=== PATIENT | female | born 2000 | race Caucasian/White ===

== ENCOUNTER 2023-09-09 11:04 | Emergency (ER) | payer OTHER, SELFPAY ==
[2023-09-09 11:29] VITALS: BP 121/73; PULSE 94; RESP 15; TEMP 36.6; O2SAT 99; BMI 22.8
[2023-09-09] MEDS: ONDANSETRON 4 MG ODT SL (11:37)
[2023-09-09 15:05] VITALS: BP 112/68; PULSE 85; RESP 18; O2SAT 100
--- NOTE | 2023-09-09 15:36 | ED.NAVMDI ---
HPI - Nausea/Vomiting/Diarrhea <Sachin Howard PA-C - Last Filed: 09/09/23 16:00> General Chief complaint: Nausea/Vomiting/Diarrhea Stated complaint: Alcohol Poisoning Time Seen by Provider: 09/09/23 14:17 Source: patient Mode of arrival: Ambulatory History of Present Illness HPI Narrative: This is a 23-year-old female presents to department due to episodes of nausea and vomiting last night as well as this morning. States she was not in a couple of days prior to that and drank quite a bit of alcohol as well as used cocaine last night. She was concerned that she was not felt this nauseous or vomited this much after drinking and using cocaine in the past. Denies any fevers, chest pain, shortness of breath, or any other concerning signs or symptoms. Related Data Previous Rx's Medication Instructions Recorded ondansetron 4 mg disintegrating 4 mg PO Q8H PRN nausea and 09/09/23 tablet vomiting #30 tabs Allergies Allergy/AdvReac Type Severity Reaction Status Date / Time No Known Drug Allergies Allergy Verified 09/09/23 11:29 Review of Systems <Sachin Howard PA-C - Last Filed: 09/09/23 16:00> Review of Systems Narrative: GENERAL: Denies chills, fatigue, malaise, fever, sweats. HEENT: Denies sinus pain, ear pain, sore throat, difficulty swallowing, dizziness. RESPIRATORY: Denies dyspnea, cough, wheezing, hemoptysis, sputum. CARDIOVASCULAR: Denies chest pain, palpitations, orthopnea, edema, GASTROINTESTINAL: Reports nausea, vomiting, denies abdominal pain, diarrhea, constipation, melena. : Denies dysuria, frequency, incontinence, hematuria, urinary retention. MUSCULOSKELETAL: denies weakness, joint pain, or bony pain SKIN: Denies rash, skin lesions, or other NEUROLOGIC: Denies weakness, headache, numbness, change in speech, confusion, seizures, incoordination. PSYCHIATRIC: No concerning psychosocial issues. 12 point review of systems is negative except for those stated above Patient History <Sachin Howard PA-C - Last Filed: 09/09/23 16:00> Social History Smoking Status: Current every day smoker Smoking Status: Current every day smoker tobacco type: vaping alcohol intake frequency: 0-2 drinks per day Substance Use Type: crack/cocaine Exam <Sachin Howard PA-C - Last Filed: 09/09/23 16:00> Narrative Exam Narrative: GENERAL: Well-developed patient, in mild distress. HEAD: Atraumatic. Normocephalic. EYES: Pupils equal round and reactive. Extraocular motions intact. No scleral icterus. No injection or drainage. ENT: Nose without bleeding, purulent drainage. Throat without erythema, tonsillar hypertrophy or exudate. Airway patent. NECK: Trachea midline. Non tender EXTREMITIES: No edema or joint tenderness. NEURO: AOx3. SKIN: No rash or erythema of visible areas Abdomen: Generalized tenderness to palpation Initial Vital Signs Initial Vital Signs: Vital Signs Temperature 97.8 F 09/09/23 11:29 Pulse Rate 94 H 09/09/23 11:29 Respiratory Rate 15 09/09/23 11:29 Blood Pressure 121/73 09/09/23 11:29 Pulse Oximetry 99 09/09/23 11:29 Oxygen Delivery Method Room Air 09/09/23 11:29 <Denise Heredia DO - Last Filed: 09/09/23 18:59> Initial Vital Signs Initial Vital Signs: Vital Signs Temperature 97.8 F 09/09/23 11:29 Pulse Rate 94 H 09/09/23 11:29 Respiratory Rate 15 09/09/23 11:29 Blood Pressure 121/73 09/09/23 11:29 Pulse Oximetry 99 09/09/23 11:29 Oxygen Delivery Method Room Air 09/09/23 11:29 Course <Sachin Howard PA-C - Last Filed: 09/09/23 16:00> Orders Ordered: ED Orders 09/09/23 15:26 Urine Drug Screen, Rapid Stat Discontinued Medications Ondansetron HCl (Ondansetron 4 Mg/2 Ml Inj) 4 mg IV NOW PRN PRN Reason: Nausea And Vomiting Ondansetron HCl (Ondansetron 4 Mg Odt) 4 mg SL NOW PRN PRN Reason: Nausea And Vomiting Last Admin: 09/09/23 11:37 Dose: 4 mg Documented By: LOKI Vital Signs Vital signs: Vital Signs - 8 hr 09/09/23 11:29 09/09/23 15:05 09/09/23 16:13 Temperature 97.8 F 98.2 F Pulse Rate 94 H 85 82 Respiratory Rate 15 18 17 Blood Pressure 121/73 112/68 118/67 Pulse Oximetry 99 100 97 Oxygen Delivery Method Room Air Room Air Room Air <Denise Heredia DO - Last Filed: 09/09/23 18:59> Orders Ordered: ED Orders 09/09/23 15:26 Urine Drug Screen, Rapid Stat Discontinued Medications Ondansetron HCl (Ondansetron 4 Mg/2 Ml Inj) 4 mg IV NOW PRN PRN Reason: Nausea And Vomiting Ondansetron HCl (Ondansetron 4 Mg Odt) 4 mg SL NOW PRN PRN Reason: Nausea And Vomiting Last Admin: 09/09/23 11:37 Dose: 4 mg Documented By: LOKI Vital Signs Vital signs: Vital Signs - 8 hr 09/09/23 11:29 09/09/23 15:05 09/09/23 16:13 Temperature 97.8 F 98.2 F Pulse Rate 94 H 85 82 Respiratory Rate 15 18 17 Blood Pressure 121/73 112/68 118/67 Pulse Oximetry 99 100 97 Oxygen Delivery Method Room Air Room Air Room Air MDM - Nausea/Vomiting/Diarrhea <Sachin Howard PA-C - Last Filed: 09/09/23 16:00> Lab Data Labs: Lab Results 09/09/23 Range/Units 15:26 U Opiates 300ng/mL cut Negative (Negative) Ur Oxycodone Screen Negative (Negative) Urine Methadone Screen Negative (Negative) Ur Barbiturates Screen Negative (Negative) U Tricyclic Antidepress Negative (Negative) Ur Phencyclidine Scrn Negative (Negative) Ur Amphetamines Screen Negative (Negative) U Methamphetamines Scrn Negative (Negative) Ur MDMA Scrn (Ecstasy) Negative (Negative) U Benzodiazepines Scrn Negative (Negative) Urine Cocaine Screen Positive H (Negative) U Marijuana (THC) Screen Negative (Negative) Urine pH Normal (Normal) Urine Specific [place] Normal (Normal) Ur Creatinine Normal (Normal) Point of Care Testing Test Results Negative Urine Dip Bedside Urine Glucose Negative Bedside Urine Bilirubin - Negative Bedside Urine Ketone +++ 80 Urine Specific [place] 1.020 Bedside Urine Occult Blood - Negative Bedside Urine pH 5.5 Bedside Urine Protein - Negative Bedside Urine Urobilinogen - Negative Bedside Urine Nitrite - Negative Bedside Urine Leukocytes - Negative Esterase MDM Narrative Medical decision making narrative: ED course: This is a 23-year-old female presents to the emergency department due to episodes of nausea and vomiting after drinking using cocaine. UA unremarkable. test negative. Throat test came back only positive for cocaine. Patient did have generalized tenderness to palpation but denied any fevers. Suspect the abdominal pain is due to the episodes of vomiting rather than acute appendicitis. ED precautions given regarding fevers as well as right lower quadrant abdominal pain. Recommended supportive care at home. CC: Nausea and vomiting Complicating co-morbidities: None Data collected from: Previous notes Medical records reviewed: Patient was not been to this emergency room in the past Differential considered, but not limited to: Acute alcohol intoxication, drug use Exam documented above, pertinent findings include: Generalized tenderness to palpation to the abdomen Lab Test results independently reviewed as above. Pertinent findings: As above Imaging studies independently reviewed: None obtained Scores Used: None MIPS Elements: None Consultations: None Treatments: None Re-evaluations: None Discussion: Discussed plan with the patient was comfortable with the plan Diagnosis: Nausea and vomiting Disposition: see below, along with detailed discharge instructions that have been reviewed with patient as well as indications for ED re-evaluation and additional outpatient follow up <Denise Heredia, DO - Last Filed: 09/09/23 18:59> Lab Data Labs: Lab Results 09/09/23 Range/Units 15:26 U Opiates 300ng/mL cut Negative (Negative) Ur Oxycodone Screen Negative (Negative) Urine Methadone Screen Negative (Negative) Ur Barbiturates Screen Negative (Negative) U Tricyclic Antidepress Negative (Negative) Ur Phencyclidine Scrn Negative (Negative) Ur Amphetamines Screen Negative (Negative) U Methamphetamines Scrn Negative (Negative) Ur MDMA Scrn (Ecstasy) Negative (Negative) U Benzodiazepines Scrn Negative (Negative) Urine Cocaine Screen Positive H (Negative) U Marijuana (THC) Screen Negative (Negative) Urine pH Normal (Normal) Urine Specific [place] Normal (Normal) Ur Creatinine Normal (Normal) Point of Care Testing Test Results Negative Urine Dip Bedside Urine Glucose Negative Bedside Urine Bilirubin - Negative Bedside Urine Ketone +++ 80 Urine Specific [place] 1.020 Bedside Urine Occult Blood - Negative Bedside Urine pH 5.5 Bedside Urine Protein - Negative Bedside Urine Urobilinogen - Negative Bedside Urine Nitrite - Negative Bedside Urine Leukocytes - Negative Esterase Discharge Plan Departure Patient Disposition: Home Clinical Impression: Drug-induced nausea and vomiting Activity Restrictions/Additional Instructions: Thank you for coming to the [facility] Emergency Department today. As we discussed I suspect the symptoms you are experiencing is due to the recent alcohol and cocaine use after not eating as much food as usual. As we discussed fluids will be beneficial but drinking them orally it will achieve the same effect. You may use the Zofran as needed for any nausea. Please remember to monitor the abdominal pain, if it begins to affect your right lower quadrant or you begin to develop any fevers please return directly to the emergency department. I sent the medication and [facility] in [place]. Please return to the emergency department if you develop any chest pain, shortness of breath, or any other concerning signs or symptoms. I hope you feel better soon. Please follow up with your primary care provider within a week if your symptoms continue. If you do not have a primary care provider please contact the [facility] Resource line at [phone]. They will ask some questions about your medical history and help you get set up with a provider in the community. Prescriptions: New ondansetron 4 mg tablet,disintegrating 4 mg PO Q8H PRN (Reason: nausea and vomiting) Qty: 30 0RF Stand Alone Forms: Patient Portal/API ED Sign-out <Denise Heredia, DO - Last Filed: 09/09/23 18:59> Cosign ED Attending Coseverardoature Attestation: I was immediately available in the department for consultation.
[2023-09-09 15:43] LABS: Ur Creatinine Normal (Normal); Ur Specific Gravity Normal (Normal); Urine Amphetamines Negative (Negative); Urine Barbiturates Negative (Negative); Urine Benzodiazepines Negative (Negative); Urine Cocaine Positive (Negative); Urine MDMA Negative (Negative); Urine Methadone Negative (Negative); Urine Methamphetamines Negative (Negative); Urine Opiates Negative (Negative); Urine Oxycodone Negative (Negative); Urine Phencyclidine Negative (Negative); Urine THC Negative (Negative); Urine Tricyclic Antidepressant Negative (Negative); Urine pH Normal (Normal)
[2023-09-09 16:13] VITALS: BP 118/67; PULSE 82; RESP 17; TEMP 36.8; O2SAT 97
== END 2023-09-09 16:14 | disposition home or self-care (01) ==
PROVIDERS: Emergency Provider Physician Assistant Medical
DX: F14.988 Cocaine use, unspecified with other cocaine-induced disorder (principal); R11.2 Nausea with vomiting, unspecified
CPT/HCPCS: 80305; 81003; 81025; 99283